=== PATIENT | male | born 1975 | race Caucasian/White ===

== ENCOUNTER 2018-06-19 16:03 | Observation (INO) ==
--- NOTE | 2018-06-19 16:36 | Emergency Department Note ---
Disposition Clinical Impression: ST segment changes on electrocardiogram, Elevated blood pressure reading Proteinuria Qualifiers: Proteinuria type: unspecified Qualified Code(s): R80.9 - Proteinuria, unspecified Disposition: Admitted As Inpatient Condition: Good Time of Disposition: 18:08 General Adult HPI - General Chief complaint: ED Abdominal Pain Stated complaint: flank/back pain Time Seen by Provider: 06/19/18 16:13 Source: patient Mode of arrival: ambulatory Limitations: no limitations Nursing Notes Reviewed: Yes Vital Signs Reviewed: Yes - History of Present Illness HPI Narrative: Patient is a 42-year-old male that presents emergency Department with reports of low back pain and being told that 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 Patient states that the back pain began approximately 2 months ago. Patient states that there is no injury or trauma at that time. P atient states that he just woke up one morning and had bilateral lower back pain. Patient denies any radiation of the pain. Patient states that the pain just feels like a ball and tightness in his lower lumbar region. Patient states that he was told that he should follow up this primary care provider for the protein in his urine however he stated that he has been putting it off and did not want to follow up this primary care provider because he felt that he would get referred to somebody else they felt that he would come to the emergency department to get everything taken care of at once. Patient denies any numbness, weakness or tingling. Patient states that he does not normally have a history of hypertension but his blood pressure was high in triage today and he was surprised by this. Pain Scale: 3 - Related Data Previous Rx's Medication Instructions Recorded Benzonatate [Tessalon] 200 mg PO TID PRN #30 capsule 06/12/18 RX: Amoxicillin 875 mg PO BID #20 tablet 06/12/18 Allergies Allergy/AdvReac Type Severity Reaction Status Date / Time No Known Allergies Allergy Verified 06/12/18 09:44 All systems ED: reviewed and negative except as stated. Constitutional: Denies: fever Cardiovascular: Denies: chest pain Respiratory: Denies: dyspnea Gastrointestinal: Denies: abdominal pain, nausea, vomiting Genitourinary: Denies: urgency, dysuria, frequency, hematuria Musculoskeletal: Reports: back pain Neurological: Denies: weakness, numbness, paresthesias Past Medical History - Past Medical History Medical history: Reports: no medical history Psychiatric history: Reports: no psych history - Social History Smoking Status: Current every day smoker Smokeless Tobacco Status: No Alcohol use: Reports: occasionally Drug use: Reports: none Physical Exam - General Limitations: no limitations General appearance: alert, in no apparent distress - Head Head exam: atraumatic, normocephalic - Eye Eye exam: Present: normal appearance, EOMI - Neck Neck exam: Present: normal inspection, full ROM, trachea midline - Respiratory Respiratory exam: Present: normal lung sounds bilaterally. Absent: respiratory distress, wheezes - Cardiovascular Cardiovascular exam: Present: regular rate, normal rhythm, normal heart sounds, +S1, +S2 - Abdominal Exam Abdominal exam: Present: soft, Non-Tender, normal bowel sounds - Back Exam Back exam: Present: normal inspection, full ROM, paraspinal tenderness, other (Patient has pain with straight leg raise but does not radiate down his legs) - Neurological Exam Neurological exam: Present: alert, oriented X3 - Psychiatric Psychiatric exam: Present: normal affect, normal mood - Skin Skin exam: Present: warm, dry, intact Course Vital Signs Temperature 97.4 F L 06/19/18 16:06 Pulse Rate 103 06/19/18 16:06 Respiratory Rate 20 06/19/18 16:06 Blood Pressure 197/121 06/19/18 16:06 O2 Sat by Pulse Oximetry 96 06/19/18 16:06 Temperature 97.8 F 06/19/18 22:43 Pulse Rate 79 06/19/18 22:43 Respiratory Rate 16 06/19/18 22:43 Blood Pressure 147/88 06/19/18 22:43 O2 Sat by Pulse Oximetry 92 06/19/18 22:43 Oxygen Delivery Oxygen Delivery Room Air Medical Decision Making - [facility] Narrative Medical decision making narrative: Due the patient is not emergency Department with reports of back pain as well as being told that he had a lot of protein in his urine obtain basic laboratory testing urinalysis and an EKG. Upon reevaluation of the patient and further questioning he does admit that he occasionally will have intermittent chest pain. Patient states that he is not having any active chest pain at this time. Patient's urinalysis is show elevated protein of 100 and his urine. Rate of h is laboratory testing is relatively unremarkable with a negative troponin. His EKG does show EKG changes with ST depression and T-wave inversions in 3, aVF, V5 and V6. This is new since his previous EKG on 03/10/2009. Patient does state that he will occasionally have intermittent chest pain. No active chest pain on the time of exam. However the patient does have a heart score of 4 and I feel that he would be better served being admitted to the hospital. Patient has had poor follow-up in the past with his primary care provider in regards to his proteinuria and I have concerns that he will successfully follow-up for outpatient evaluation of his EKG changes. Spoke with the admitting hospitalist and he is except the patient their service. Patient be admitted to the hospital this time for further evaluation and management. - Medical Records Medical records reviewed: Yes I reviewed the patient's medical records. - Lab Data Lab results reviewed: Yes I reviewed the patient's lab results. Result diagrams: 06/19/18 16:56 06/19/18 16:56 Lab Results 06/19/18 06/19/18 06/19/18 Range/Units 16:56 16:56 17:41 WBC 8.5 (4.3-11.1) K/mcL RBC 5.39 (4.19-5.50) M/mcL Hgb 15.4 (12.9-16.9) g/dL Hct 47.5 (37.5-50.1) % MCV 88.1 (83.0-100.0) fL MCH 28.6 (28.0-33.3) pg MCHC 32.4 (31.6-35.5) g/dL RDW 13.6 (11.5-14.5) % Plt Count 328 (140-400) K/mcL MPV 9.3 L (9.4-12.4) fL Immature Gran % 0.4 (0-4) % Seg Neutrophils % 56.9 % Lymphocytes % 29.2 % Monocytes % 9.2 % Eosinophils % 3.4 % Basophils % 0.9 % Neutrophils # 4.8 (1.6-8.9) K/mcL Lymphocytes # 2.5 (0.6-4.6) K/mcL Monocytes # 0.8 (0.0-1.3) K/mcL Eosinophils # 0.3 (0.0-0.6) K/mcL Basophils # 0.1 (0.0-0.2) K/mcL Sodium 137 (136-145) mEq/L Potassium 4.4 (3.5-5.1) mEq/L Chloride 103 (98-107) mEq/L Carbon Dioxide 28 (23-29) mEq/L BUN 12 (6-20) mg/dL Creatinine 0.76 (0.70-1.30) mg/dL Est GFR ( Amer) > 60 (> 60) Est GFR (Non-Af Amer) > 60 (> 60) BUN/Creatinine Ratio 16 (6-26) Glucose 115 H (70-105) mg/dL Calculated Osmolality 285 (280-300) Calcium 9.3 (8.6-10.3) mg/dL Total Bilirubin 0.2 L (0.3-1.0) mg/dL Direct Bilirubin 0.1 (0.0-0.2) mg/dL Indirect Bilirubin 0.1 (0.0-1.2) mg/dL AST 28 (13-39) Units/L ALT 33 (7-52) Units/L Alkaline Phosphatase 24 L (34-104) Units/L Troponin I 0.03 (< 0.04) ng/mL Serum Total Protein 6.8 (6.4-8.9) g/dL Albumin 3.9 (3.5-5.7) g/dL Globulin 2.9 (2.4-3.5) g/dL Albumin/Globulin Ratio 1.3 (1.1-2.2) Urine Color Yellow (Yellow) Urine Clarity Cloudy A (Clear) Urine pH 6.5 (5.0-8.0) pH Units Ur Specific [place] 1.020 (1.010-1.025) Urine Protein 100 H (Neg-Trace) mg/dL Urine Glucose (UA) Normal (Normal) mg/dL Urine Ketones Negative (Negative) mg/dL Urine Blood Moderate H (Negative) Urine Nitrite Negative (Negative) Urine Bilirubin Negative (Negative) Urine Urobilinogen Normal (Normal) mg/dL Ur Leukocyte Esterase Negative (Negative) Urine Microscopic RBC 3-5 H (0-3) per hpf Urine Microscopic WBC 0-3 (0-3) per hpf Ur Squamous Epith Cells Moderate H (None-Few) per lpf Amorphous Sediment Moderate H (Few) Urine Bacteria None Seen (None-Few) per hpf Hyaline Casts None Seen (None-Few) per lpf Urine Yeast Many H (None Seen) per hpf Ur Culture Indicated? NO (NO) - Radiology Data Radiology results reviewed: Yes I reviewed the patient's radiology results. Chest X-Ray 06/19/18 17:21 IMPRESSION: Cardiomegaly. No radiographic evidence of acute pulmonary disease. D/ / Saroj Jones / Saroj Jones Interpreting Provider: Saroj Jones - EKG Data EKG #1 EKG attestation: Yes I reviewed and interpreted this EKG. EKG results narrative: EKG shows a sinus rhythm at rate 84 bpm, RI interval of 207, QRS duration of 99, QTC of 439. There is no evidence of STEMI on EKG. There are ST depressions and T-wave inversions in 3 and aVF as well as V5 and V6. This was compared to previous EKG on 03/10/2009. These depressions and inversions were not there at that time. Attestation Statement - Attestation Attestation: Resident Attestation: I examined this patient and my medical decision making was reviewed with the Resident Physician. I agree with the documented findings, disposition and treatment plan as described except to the extent set forth below. We independently had [id number] contact with the patient. Patient initially presented to the emergency department secondary to elevated protein in his urine. Patient states urgent care told him follow-up with primary care as his kidneys could be "shutting down". Patient arrives to the emergency department with complaints of back pain as well as elevated blood pressure systolically 190/20. The patient denies previous hypertension. Overall patient states that he has not had protein in his urine previously. At this time we did initiate a workup to evaluate for end organ damage. Overall creatinine was normal however the patient does have a significantly abnormal EKG. On asking the patient about chest pain he does state that he gets intermittent chest pain. Unfortunately he is unable to specify exactly when or how often he gets it. He states that he does get significantly short of breath but given his body habitus it is unknown whether it is related to a cardiac equivalent versus deconditioning. I did discuss with him the need for further workup. Patient does not have a primary care physician. The patient had his labs evaluated from previously and was found to have proteinuria in November. Patient was asked about this as he previously denied and states that he did not feel like following up. Given the patient's significantly abnormal EKG as well as associated chest pain and exertional dyspnea patient will be admitted for further cardiac evaluation as I do not believe that he will be able to have this performed in a reasonable amount of time as an outpatient. Overall back pain likely related to musculoskeletal nature as it is related over the SI joints as well as the paraspinal muscles and worse with movements without any specific midline spine tenderness or tenderness to the pelvis. General: Well appearing, nontoxic, no acute distress Head: Normocephalic Atraumatic Eyes: PERRL, EOMI ENT: Airway patent, no stridor Neck: supple, no meningismus Chest: Lungs clear to auscultation bilateral Cardiac: Regular rate and rhythm, no murmurs, rubs or gallops Abdomen: soft, nontender, nondistended; no guarding, rebound, or tenderness to percussion Musculoskeletal: Calves symmetric, nontender. Pain to palpation of the SI joints as well as paraspinal muscles bilaterally Skin: No rash, normal skin tone. Neuro: Alert and Oriented to person, place, and time; No obvious focal deficit.
[2018-06-19 17:08] LABS: Basophils # 0.1 K/mcL (0.0-0.2); Basophils % 0.9 %; Eosinophils # 0.3 K/mcL (0.0-0.6); Eosinophils % 3.4 %; Hematocrit 47.5 % (37.5-50.1); Hemoglobin 15.4 g/dL (12.9-16.9); Immature Granulocytes % 0.4 % (0-4); Lymphocytes # 2.5 K/mcL (0.6-4.6); Lymphocytes % 29.2 %; Mean Corpuscular HGB Conc 32.4 g/dL (31.6-35.5); Mean Corpuscular Hemoglobin 28.6 pg (28.0-33.3); Mean Corpuscular Volume 88.1 fL (83.0-100.0); Mean Platelet Volume 9.3 fL (9.4-12.4); Monocytes # 0.8 K/mcL (0.0-1.3); Monocytes % 9.2 %; Neutrophils # 4.8 K/mcL (1.6-8.9); Platelet Count 328 K/mcL (140-400); Red Blood Count 5.39 M/mcL (4.19-5.50); Red Cell Distribution Width 13.6 % (11.5-14.5); Segmented Neutrophils % 56.9 %
[2018-06-19 17:29] LABS: Alanine Aminotransferase 33 Units/L (7-52); Albumin 3.9 g/dL (3.5-5.7); Albumin/Globulin Ratio 1.3 (1.1-2.2); Alkaline Phosphatase 24 Units/L (34-104); Aspartate Amino Transferase 28 Units/L (13-39); BUN/Creatinine Ratio 16 (6-26); Bilirubin,Direct 0.1 mg/dL (0.0-0.2); Bilirubin,Indirect 0.1 mg/dL (0.0-1.2); Bilirubin,Total 0.2 mg/dL (0.3-1.0); Blood Urea Nitrogen 12 mg/dL (6-20); Calcium 9.3 mg/dL (8.6-10.3); Carbon Dioxide 28 mEq/L (23-29); Chloride 103 mEq/L (98-107); Globulin 2.9 g/dL (2.4-3.5); Glucose 115 mg/dL (70-105); Osmolality,Calculated 285 (280-300); Potassium 4.4 mEq/L (3.5-5.1); Sodium 137 mEq/L (136-145); Total Protein 6.8 g/dL (6.4-8.9); Troponin I 0.03 ng/mL (< 0.04); eGFR For Non-African Americans > 60 (> 60)
[2018-06-19 17:50] LABS: Bilirubin,Urine Negative (Negative); Blood,Urine Moderate (Negative); Clarity,Urine Cloudy (Clear); Color,Urine Yellow (Yellow); Glucose,Urine (UA) Normal (Normal); Ketones,Urine Negative (Negative); Leukocyte Esterase,Urine Negative (Negative); Nitrite,Urine Negative (Negative); PH,Urine 6.5 pH Units (5.0-8.0); Protein,Urine 100 mg/dL (Neg-Trace); Urobilinogen,Urine Normal (Normal)
[2018-06-19 17:53] LABS: Bacteria,Urine None Seen per hpf (None-Few); Hyaline Casts,Urine None Seen per lpf (None-Few); Squamous Epithelial Cell,Urine Moderate per lpf (None-Few); WBC,Urine 0-3 per hpf (0-3)
[2018-06-19 18:04] LABS: Amorphous Sediment,Urine Moderate (Few); Yeast,Urine Many per hpf (None Seen)
[2018-06-19] MEDS: *HR* Labetalol 20 MG/4 ML SYRINGE IVP PRN (18:46)
[2018-06-19] MEDS ORDERED: Acetaminophen 325 MG TABLET PO ONE (18:56)
--- NOTE | 2018-06-19 19:21 | Internal Med History&Physical ---
Date of Encounter: 06/19/18 Time of Encounter: 19:17 Internal Medicine - H&P: HPI Chief complaint: Back Pain/ Protienuria/Chest Pain History of present illness: Mr. Quevedo is a 42 year old morbidly obese male with no significant prior past medical history who was admitted to the ED today due to complaints of low back pain and findings of proteinuria on outpatient laboratory workup during a physical exam. Patient states he has been having back pain for some time that s cheduled progressively worse over the past 2 weeks. Pain is located across the lower lumbar region. Described as a dull tightness/ache. Pain is aggravated with ambulation and prolonged standing. Patient states she has been on his feet at work which is been more strenuous over the past 2 weeks. Patient states now he cannot stand for more than a few minutes without having pain in his back. No reports of radiation down the legs. Denies any numbness tingling or weakness in the lower extremities. Patient was also informed that his urine was notable for proteinuria. Patient has been informed that he has elevation of protein in his urine by his PCP and would require follow-up, however, patient apparently has been putting this off and as opposed to getting referred to someone else, decide d to come to the ED to get all his issues evaluated at one time. Workup in the ED was initially notable for hypertension with a blood pressure of 191/121. EKG was obtained which showed subtle changes when compared to previous EKG in February, specifically subtle T-wave changes in leads 3 and aVF and lateral leads. Upon further questioning patient does endorse intermittent chest pain which he describes as tightness, typically occurring with exertion with no other associated symptoms. Patient is not recall if he has ever had a stress test. Patient does smoke half a pack a day and has been doing so for approximately 20 years. Denies any significant family history of heart disease. Laboratory workup was otherwise unremarkable aside from UA studies positive for proteinuria and moderate RBCs. Patient received labetalol in the ED with improvement in blood pressure. Past Med Surg Social Fam HX - Past Medical History Medical history: no medical history Psychiatric history: no psych history - Social History Smoking Status: Current every day smoker Smokeless Tobacco Status: No Alcohol use: occasionally Drug use: none Internal Medicine - H&P: Meds Amoxicillin 875 mg PO BID #20 tablet 06/12/18 [Rx] Benzonatate [Tessalon] 200 mg PO TID PRN #30 capsule 06/12/18 [Rx] Allergy/AdvReac Type Severity Reaction Status Date / Time No Known Allergies Allergy Verified 06/12/18 09:44 All Systems PM: A 10-system review of systems was performed and is negative for pertinent findings except as documented above in the HPI. - Constitutional Constitutional: no chills, no fever(s), no night sweats - EENT Eyes: no change in vision, no discharge, no pain, no photophobia Ears: no ear discharge, no ear pain, no tinnitus Nose, mouth and throat: no dysphagia, no nasal discharge, no neck pain, no sore throat - Cardiovascular Cardiovascular ROS IM: no chest pain, no diaphoresis, no dyspnea, no lightheadedness, no palpitations, no syncope - Respiratory Respiratory: no cough, no dyspnea, no wheezing, no excessive phlegm production - Gastrointestinal Gastrointestinal: no abdominal pain, no diarrhea, no hematemesis, no hematochezia, no melena, no nausea, no vomiting - Musculoskeletal Musculoskeletal ROS IM: no numbness, no tingling - Integumentary Integumentary IM: no rash, no unusual bruising - Neurological Neurological ROS: no confusion, no convulsions, no focal weakness, no numbness, no tingling, no tremor(s) - Hematologic/Lymphatic Hematologic/Lymphatic: no easy bruising - Constitutional Vitals: Temp Pulse Resp BP Pulse Ox 97.4 F L 87 14 147/98 96 06/19/18 16:06 06/19/18 18:44 06/19/18 18:44 06/19/18 18:44 06/19/18 18:44 Exam: General: Alert and oriented 3 sitting in chair. Skin:Normal color, no rash, no lesions. HEENT:EOM, pupils equal, round and reactive. Cardiovascular:Normal S1 & S2, no rubs, murmurs or gallops. No JVD. Pulse regular. Lungs:Normal breath sounds, no wheezes or crackles. Abdomen:Soft, non-tender, no rigidity. Musculoskeletal/Extremities: Tenderness to palpation across the lower back at the level of L4-L5. Neurological:Normal cognition and motor skills. Incision intact. Muscle strength in the lower extremities 5 out of 5 bilaterally. Pulses:Carotid and radial pulses normal +2. Rest of the physical exam is non contributory Internal Med - H&P Results - Labs CBC & Chem 7: 06/20/18 03:14 06/20/18 03:14 Labs: Short CBC 06/19/18 Range/Units 16:56 WBC 8.5 (4.3-11.1) K/mcL Hgb 15.4 (12.9-16.9) g/dL Hct 47.5 (37.5-50.1) % Plt Count 328 (140-400) K/mcL Neutrophils # 4.8 (1.6-8.9) K/mcL BMP 06/19/18 16:56 Sodium 137 Potassium 4.4 Chloride 103 Carbon Dioxide 28 BUN 12 Creatinine 0.76 Glucose 115 H Calcium 9.3 Cardiac Enzymes 06/19/18 Range/Units 16:56 Troponin I 0.03 (< 0.04) ng/mL Liver Function 06/19/18 Range/Units 16:56 Total Bilirubin 0.2 L (0.3-1.0) mg/dL Direct Bilirubin 0.1 (0.0-0.2) mg/dL AST 28 (13-39) Units/L ALT 33 (7-52) Units/L Alkaline Phosphatase 24 L (34-104) Units/L Albumin 3.9 (3.5-5.7) g/dL Urine 06/19/18 Range/Units 17:41 Urine Color Yellow (Yellow) Urine Clarity Cloudy A (Clear) Urine pH 6.5 (5.0-8.0) pH Units Ur Specific [place] 1.020 (1.010-1.025) Urine Protein 100 H (Neg-Trace) mg/dL Urine Glucose (UA) Normal (Normal) mg/dL - Impressions ITS Impressions Chest X-Ray 06/19/18 17:21 IMPRESSION: Cardiomegaly. No radiographic evidence of acute pulmonary disease. D/ / Saroj Jones / Saroj Jones Interpreting Provider: Saroj Jones - Assessment and Plan (1) Chest pain Current Visit: Yes Status: Acute Assessment and plan: Patient reports intermittent chest pain with exertion relieved with rest. Upon arrival EKG showed subtle T-wave inversions/changes when compared to previous EKG in February. She currently chest pain-free. Troponins negative. Patient has significant risk factors including morbid obesity, hypertension, and smoking history. -We will obtain nuclear stress test due to patient's body habitus and back pain -Obtain echocardiogram -Patient consult on smoking cessation and weight loss Qualifiers: Chest pain type: unspecified Qualified Code(s): R07.9 - Chest pain, unspecified (2) EKG abnormalities Current Visit: Yes Status: Acute Assessment and plan: See above (3) Elevated blood pressure reading Current Visit: Yes Status: Acute Assessment and plan: Patient presented with a blood pressure of 191/121. Patient received labetalol with good response. Blood pressurestable. Unclear if blood pressure has been ongoing or related to pain versus NSAID use. Patient not currently on any antih ypertensives. -We will monitor BP -Continue with antihypertensives as needed (4) Proteinuria Current Visit: Yes Status: Acute Assessment and plan: UA shows proteinuria of 100 mg/dL. Patient reports she has been told he has had proteinuria before but has not followed up workup. Kidney function is other gamez within normal limits. Patient does report taking 200 mg of ibuprofen twice a day for the past month for his back pain. No history of diabetes. Patient was found to be hypertensive. Unclear how long his hypertension has been ongoing for versus secondary to NSAID use. Discussed with patient need to discontinue NSAIDs. Patient's morbid obesity may also be continuing to a type of obesity hyperfiltration injury. -We will obtain random protein/creatinine ratio -Check hemoglobin A1c -We will obtain renal ultrasound -Discontinue NSAID's for pain control -Nephrology consult Qualifiers: Proteinuria type: unspecified Qualified Code(s): R80.9 - Proteinuria, unspecified (5) Back pain Current Visit: Yes Status: Acute Assessment and plan: Patient presents with what appears to be chronic back pain that has gotten progressively worse over the past 2 weeks. No reports of trauma. Suspect musculoskeletal in origin given patient's body habitus, history, and physical examination.. No evidence of any radiculopathy, weakness, numbness or tingling. -We will give patient tramadol for pain control -MRI of the lumbar spine in the morning Qualifiers: Back pain location: back pain in unspecified location Qualified Code(s): M54.9 - Dorsalgia, unspecified (6) DVT prophylaxis Current Visit: Yes Status: Acute Assessment and plan: Subcutaneous heparin - Time Spent With Patient Total time spent is greater than 50% in coordination of care (as documented) at patient's floor/unit and/or counseling patient:
[2018-06-19] MEDS ORDERED: Naloxone 0.4 MG/ML INJ IVP PRN (19:24)
[2018-06-19] MEDS ORDERED: Gadolinium Contrast Agent (WT Based) IV PRN (20:47)
[2018-06-19] MEDS: *HR* Heparin 5,000 UNIT/ML VIAL SQ SCH (23:56)
[2018-06-20 04:08] LABS: Hematocrit 45.3 % (37.5-50.1); Hemoglobin 14.6 g/dL (12.9-16.9); Mean Corpuscular HGB Conc 32.2 g/dL (31.6-35.5); Mean Corpuscular Hemoglobin 28.7 pg (28.0-33.3); Mean Platelet Volume 9.5 fL (9.4-12.4); Platelet Count 322 K/mcL (140-400); Red Blood Count 5.09 M/mcL (4.19-5.50); Red Cell Distribution Width 13.7 % (11.5-14.5)
[2018-06-20 04:22] LABS: Alanine Aminotransferase 31 Units/L (7-52); Albumin 3.6 g/dL (3.5-5.7); Albumin/Globulin Ratio 1.3 (1.1-2.2); Alkaline Phosphatase 22 Units/L (34-104); Aspartate Amino Transferase 26 Units/L (13-39); BUN/Creatinine Ratio 12 (6-26); Bilirubin,Total 0.2 mg/dL (0.3-1.0); Blood Urea Nitrogen 12 mg/dL (6-20); Calcium 9.2 mg/dL (8.6-10.3); Carbon Dioxide 32 mEq/L (23-29); Chloride 101 mEq/L (98-107); Chol/HDL Ratio 14.1 (0-4.9); Cholesterol 183 mg/dL (< 200); Globulin 2.7 g/dL (2.4-3.5); Glucose 104 mg/dL (70-105); HDL Cholesterol 13 mg/dL (40-59); LDL Cholesterol,Calculated 139 mg/dL (0-99); Magnesium 2.1 mg/dL (1.6-2.6); Osmolality,Calculated 286 (280-300); Potassium 3.9 mEq/L (3.5-5.1); Sodium 138 mEq/L (136-145); Total Protein 6.3 g/dL (6.4-8.9); Triglycerides 154 mg/dL (< 150); eGFR For Non-African Americans > 60 (> 60)
[2018-06-20] MEDS: *HR* Heparin 5,000 UNIT/ML VIAL SQ SCH ×3 (05:37→20:20)
[2018-06-20] MEDS: traMADol 50 MG TABLET PO PRN ×3 (05:41→20:20)
[2018-06-20 06:37] LABS: Protein/Creatinine Ratio,Urine 0.26 mg/mg (0.00-0.20)
[2018-06-20] MEDS ORDERED: Regadenoson 0.4 MG/5 ML SYRINGE IVP ONE (07:24)
[2018-06-20 08:20] LABS: Estimated Average Glucose 126 mg/dl
--- NOTE | 2018-06-20 08:27 | Nephrology Consult Note ---
Date of Encounter: 06/20/18 Time of Encounter: 08:27 Past Med Surg Social Fam HX - Past Medical History Medical history: no medical history Psychiatric history: no psych history - Past Surgical History Surgical History: herniorrhaphy, tonsilectomy - Social History Smoking Status: Current every day smoker Smokeless Tobacco Status: No Alcohol use: occasionally Drug use: none - Family History Father Hx Family Cardiac Disorders: Yes (svt htn) Hx Family Respiratory Disorders: Yes (copd) Mother Hx Family Respiratory Disorders: Yes (pulmonary HTN) Medications and Allergies Amoxicillin 875 mg PO BID #20 tablet 06/12/18 [Rx] Benzonatate [Tessalon] 200 mg PO TID PRN #30 capsule 06/12/18 [Rx] Allergy/AdvReac Type Severity Reaction Status Date / Time No Known Allergies Allergy Verified 06/12/18 09:44 Exam - Vital Signs Vital signs: Initial Vital Signs Temp Pulse Resp BP Pulse Ox 97.4 F L 103 20 197/121 96 06/19/18 16:06 06/19/18 16:06 06/19/18 16:06 06/19/18 16:06 06/19/18 16:06 Vital Signs - Last 8 Hours Temp Pulse Resp BP Pulse Ox 06/20/18 07:15 97.3 F L 81 16 138/90 95 06/20/18 03:02 97.9 F 85 16 157/88 93 Intake and Output 06/19/18 06/20/18 06/20/18 23:59 07:59 15:59 Other: Stool Characteristics Normal for Patient Weight 214.6 kg 214.6 kg Patient Weight 06/20/18 23:59 Weight 214.6 kg Results - Lab Results 06/20/18 03:14 06/20/18 03:14 Most recent lab results Calcium 9.2 mg/dL (8.6-10.3) 06/20/18 03:14 Magnesium 2.1 mg/dL (1.6-2.6) 06/20/18 03:14 Urine Creatinine 238 mg/dL 06/20/18 06:00 Urine Total Protein 62 mg/dL (1-14) H 06/20/18 06:00 Consult Discharge Plan - Plan Referrals: Susy Thomas [facility] [Primary Care Provider] -
--- NOTE | 2018-06-20 08:33 | Event Note ---
Date of Encounter: 06/20/18 Time of Encounter: 08:30 I've been by the patient's room twice and he has been away for a procedure. Will repeat UA with urine p/c ratio. UA looks as if there could be a fungal UTI. Will check urine culture. Creatinine normal. Full consult to follow.
[2018-06-20] MEDS ORDERED: Perflutren Lipid Microsphere 1.3 ML in 0.9 % Sodium Chloride 8.7 ML IVP ONE (08:57)
[2018-06-20] MEDS: *HR* Labetalol 20 MG/4 ML SYRINGE IVP PRN (11:54)
--- NOTE | 2018-06-20 14:24 | Internal Med Progress Note ---
Hospitalist Progress Note - Encounter Date of Encounter: 06/20/18 Time of Encounter: 14:24 - Subjective Interval History: Patient was seen and examined at bedside I did discuss the treatment plan with the patient we reviewed results of lab work as well as echo. I answered patient's questions he denies any pain or discomfort at this time - Exam Vitals: Temp Pulse Resp BP Pulse Ox 97.9 F 79 16 170/65 95 06/20/18 13:52 06/20/18 13:52 06/20/18 13:52 06/20/18 13:52 06/20/18 13:52 Exam: General: Alert and oriented 3 sitting in chair. Morbidly obese Skin:Normal color, no rash, no lesions. HEENT:EOM, pupils equal, round and reactive. Cardiovascular:Normal S1 & S2, no rubs, murmurs or gallops. No JVD. Pulse regular. Lungs:Normal breath sounds, no wheezes or crackles. Abdomen:Soft, non-tender, no rigidity. Musculoskeletal/Extremities: Tenderness to palpation across the lower back at the level of L4-L5. Neurological:Normal cognition and motor skills. Muscle strength in the lower extremities 5 out of 5 bilaterally. Pulses:Carotid and radial pulses normal +2. Rest of the physical exam is non contributory - Assessment and Plan (1) Proteinuria Current Visit: Yes Status: Acute Assessment and Plan: UA shows proteinuria of 100 mg/dL. Patient reports she has been told he has had proteinuria before but has not followed up workup. Kidney function is otherwise within normal limits. Patient does report taking 200 mg of ibuprofen twice a day for the past month for his back pain. No history of diabetes. Patient was found to be hypertensive. Unclear how long his hypertension has been ongoing for versus secondary to NSAID use. Discussed with patient need to discontinue NSAIDs. Patient's morbid obesity may also be continuing to a type of obesity hyperfiltration injury. -We will obtain random protein/creatinine ratio -Check hemoglobin A1c-6.0 -We will obtain renal ultrasound- pending -Discontinue NSAID's for pain control -Nephrology consult (2) Elevated blood pressure reading Current Visit: Yes Status: Acute Assessment and Plan: Patient presented with a blood pressure of 191/121. Patient received labetalol with good response. Blood pressurestable. Unclear if blood pressure has been ongoing or related to pain versus NSAID use. Patient not currently on any antihypertensives. -We will monitor BP-has been elevated at times will continue to monitor -Continue with antihypertensives as needed (3) Chest pain Current Visit: Yes Status: Acute Assessment and Plan: Patient reports intermittent chest pain with exertion relieved with rest. Upon arrival EKG showed subtle T-wave inversions/changes when compared to previous EKG in February. She currently chest pain-free. Troponins negative. Patient has significant risk factors including morbid obesity, hypertension, and smoking history. -We will obtain nuclear stress test due to patient's body habitus and back pain- he is finished first day of today - echocardiogram Impressions: Technically sub-optimal due to body habitus. LVEF 50%. Normal left ventricular diastolic function. The right ventricle was not well visualized Unable to estimate RVSP due to lack of TR jet. No obvious significant valvular dysfunction. -Patient consult on smoking cessation and weight loss (4) EKG abnormalities Current Visit: Yes Status: Acute Assessment and Plan: See above (5) Back pain Current Visit: Yes Status: Acute Assessment and Plan: Patient presents with what appears to be chronic back pain that has gotten progressively worse over the past 2 weeks. No reports of trauma. Suspect musculoskeletal in origin given patient's body habitus, history, and physical examination.. No evidence of any radiculopathy, weakness, numbness or tingling. -We will give patient tramadol for pain control -MRI of the lumbar spine in the morning (6) DVT prophylaxis Current Visit: Yes Status: Acute Assessment and Plan: Subcutaneous heparin - Time Spent with Patient Total time spent is greater than 50% in coordination of care (as documented) at patient's floor/unit and/or counseling patient: Internal Medicine: Result - Labs CBC & Chem 7: 06/20/18 03:14 06/20/18 03:14 Labs: Short CBC 06/19/18 06/20/18 Range/Units 16:56 03:14 WBC 8.5 8.8 (4.3-11.1) K/mcL Hgb 15.4 14.6 (12.9-16.9) g/dL Hct 47.5 45.3 (37.5-50.1) % Plt Count 328 322 (140-400) K/mcL Neutrophils # 4.8 (1.6-8.9) K/mcL BMP 06/19/18 06/20/18 16:56 03:14 Sodium 137 138 Potassium 4.4 3.9 Chloride 103 101 Carbon Dioxide 28 32 H BUN 12 12 Creatinine 0.76 0.99 Glucose 115 H 104 Calcium 9.3 9.2 Cardiac Enzymes 06/19/18 06/19/18 Range/Units 16:56 22:51 Troponin I 0.03 0.03 (< 0.04) ng/mL Liver Function 06/19/18 06/20/18 Range/Units 16:56 03:14 Total Bilirubin 0.2 L 0.2 L (0.3-1.0) mg/dL Direct Bilirubin 0.1 (0.0-0.2) mg/dL AST 28 26 (13-39) Units/L ALT 33 31 (7-52) Units/L Alkaline Phosphatase 24 L 22 L (34-104) Units/L Albumin 3.9 3.6 (3.5-5.7) g/dL Urine 06/19/18 Range/Units 17:41 Urine Color Yellow (Yellow) Urine Clarity Cloudy A (Clear) Urine pH 6.5 (5.0-8.0) pH Units Ur Specific [place] 1.020 (1.010-1.025) Urine Protein 100 H (Neg-Trace) mg/dL Urine Glucose (UA) Normal (Normal) mg/dL - Impressions Impressions Chest X-Ray 06/19/18 17:21 IMPRESSION: Cardiomegaly. No radiographic evidence of acute pulmonary disease. D/ / Saroj Jones / Saroj Jones Interpreting Provider: Saroj Jones Echocardiogram 06/20/18 19:33 Impressions: Technically sub-optimal due to body habitus. LVEF 50%. Normal left ventricular diastolic function. The right ventricle was not well visualized Unable to estimate RVSP due to lack of TR jet. No obvious significant valvular dysfunction. Left Ventricular Wall Motion: Rest Echo Findings All wall segments showed normal motion. Findings: Study Quality * Technically sub-optimal due to body habitus. ECG Findings * Normal sinus rhythm. Left Ventricle * LVEF 50%. * Definity echo contrast was used. * Normal left ventricular diastolic function. IVC * Normal IVC dimensions and inspiratory collapse. Tricuspid Valve * Unable to estimate RVSP due to lack of TR jet. * Tricuspid valve not well visualized. * Trace tricuspid regurgitation. * No tricuspid stenosis. Mitral Valve * Mitral valve not well visualized. * No mitral regurgitation. * No mitral stenosis. Aortic Valve * Aortic valve not well visualized. * No aortic regurgitation. * No aortic stenosis. Interatrial Septum * Interatrial septum not well evaluated. Right Atrium * Normal right atrial size. Left Atrium * Normal left atrial size. Right Ventricle * The right ventricle was not well visualized Aorta * Normally sized aortic root. Pulmonic Valve * Pulmonic valve not well visualized. Pulmonary Artery * Pulmonary artery not well visualized. Consult Discharge Plan - Plan Referrals: Susy Thomas, CHALK EXTRUDING MACHINE OPERATOR [Primary Care Provider] - (1) Proteinuria Qualifiers: Proteinuria type: unspecified Qualified Code(s): R80.9 - Proteinuria, unspecified
[2018-06-21] MEDS: traMADol 50 MG TABLET PO PRN ×3 (04:34→18:26)
[2018-06-21] MEDS: *HR* Heparin 5,000 UNIT/ML VIAL SQ SCH ×2 (04:35→15:06)
[2018-06-21 05:08] LABS: Basophils # 0.1 K/mcL (0.0-0.2); Basophils % 0.8 %; Eosinophils # 0.3 K/mcL (0.0-0.6); Eosinophils % 3.6 %; Hematocrit 48.1 % (37.5-50.1); Hemoglobin 15.3 g/dL (12.9-16.9); Immature Granulocytes % 0.3 % (0-4); Lymphocytes # 3.1 K/mcL (0.6-4.6); Lymphocytes % 34.5 %; Mean Corpuscular HGB Conc 31.8 g/dL (31.6-35.5); Mean Corpuscular Hemoglobin 28.4 pg (28.0-33.3); Mean Corpuscular Volume 89.4 fL (83.0-100.0); Mean Platelet Volume 9.6 fL (9.4-12.4); Monocytes # 0.7 K/mcL (0.0-1.3); Monocytes % 7.8 %; Neutrophils # 4.7 K/mcL (1.6-8.9); Platelet Count 303 K/mcL (140-400); Red Blood Count 5.38 M/mcL (4.19-5.50); Red Cell Distribution Width 13.8 % (11.5-14.5)
[2018-06-21 05:26] LABS: BUN/Creatinine Ratio 11 (6-26); Blood Urea Nitrogen 10 mg/dL (6-20); Calcium 9.2 mg/dL (8.6-10.3); Carbon Dioxide 32 mEq/L (23-29); Chloride 100 mEq/L (98-107); Glucose 96 mg/dL (70-105); Osmolality,Calculated 279 (280-300); Potassium 4.2 mEq/L (3.5-5.1); Sodium 135 mEq/L (136-145); eGFR For Non-African Americans > 60 (> 60)
--- NOTE | 2018-06-21 10:30 | Nephrology Consult Note ---
Date of Encounter: 06/21/18 Time of Encounter: 10:30 Past Med Surg Social Fam HX - Past Medical History Medical history: no medical history Psychiatric history: no psych history - Past Surgical History Surgical History: herniorrhaphy, tonsilectomy - Social History Smoking Status: Current every day smoker Smokeless Tobacco Status: No Alcohol use: occasionally Drug use: none - Family History Father Hx Family Cardiac Disorders: Yes (svt htn) Hx Family Respiratory Disorders: Yes (copd) Mother Hx Family Respiratory Disorders: Yes (pulmonary HTN) Medications and Allergies Amoxicillin 875 mg PO BID #20 tablet 06/12/18 [Rx] Benzonatate [Tessalon] 200 mg PO TID PRN #30 capsule 06/12/18 [Rx] Allergy/AdvReac Type Severity Reaction Status Date / Time No Known Allergies Allergy Verified 06/12/18 09:44 Exam - Vital Signs Vital signs: Initial Vital Signs Temp Pulse Resp BP Pulse Ox 97.4 F L 103 20 197/121 96 06/19/18 16:06 06/19/18 16:06 06/19/18 16:06 06/19/18 16:06 06/19/18 16:06 Vital Signs - Last 8 Hours Temp Pulse Resp BP Pulse Ox 06/21/18 06:47 97.8 F 75 14 140/94 94 06/21/18 05:07 97.5 F L 76 14 128/85 96 Intake and Output 06/20/18 06/21/18 06/21/18 23:59 07:59 15:59 Other: Meal Dinner Percent of Meal Consumed 100% # Voids 1 Weight 217 kg Patient Weight 06/21/18 23:59 Weight 217 kg Results - Lab Results 06/21/18 04:04 06/21/18 04:04 Most recent lab results Calcium 9.2 mg/dL (8.6-10.3) 06/21/18 04:04 Magnesium 2.1 mg/dL (1.6-2.6) 06/20/18 03:14 Urine Creatinine 238 mg/dL 06/20/18 06:00 Urine Total Protein 62 mg/dL (1-14) H 06/20/18 06:00 Consult Discharge Plan - Plan Referrals: Susy Thomas CNP [Primary Care Provider] - 06/23/18 1:00 pm
[2018-06-21 15:06] VITALS: BP 142/83
--- NOTE | 2018-06-21 17:34 | Discharge Summary ---
- NOTES TO OUTPATIENT PROVIDER Notes to Outpatient Provider: Presented with back pain unable to perform MRI due to body [id number] of lumbar and thoracic spine shows multilevel degenerative disc disease and mild upper lumbar spondylosis-patient will require consult with dietitian as outpatient concerning diet and weight loss management. Also follow-up with orthopedics-he may require [facility] -unsure if they have an MRI that well accommodate his size-he did have some chest pain and borderline T-wave abnormality underwent stress test which was negative echo shows EF of 50% had proteinuria was seen by nephrology will need to follow-up as outpatient. Started on lisinopril for elevated blood pressure as well as statin and aspirin-blood pressure log Orders not resulted at time of discharge: Pending orders 06/20/18 07:00 NM chris perf SPECT multi [NM] Routine Date of Encounter: 06/21/18 Time of Encounter: 17:34 - Discharge Diagnosis (1) Proteinuria Priority: Secondary Status: Acute Qualifiers: Proteinuria type: unspecified Qualified Code(s): R80.9 - Proteinuria, unspecified (2) Elevated blood pressure reading Priority: Secondary Status: Acute (3) Chest pain Priority: Secondary Status: Acute Qualifiers: Chest pain type: unspecified Qualified Code(s): R07.9 - Chest pain, unspecified (4) EKG abnormalities Priority: Secondary Status: Acute (5) Back pain Priority: Secondary Status: Acute Qualifiers: Back pain location: back pain in unspecified location Qualified Code(s): M54.9 - Dorsalgia, unspecified Hospital course: Mr. Quevedo is a 42 year old male past medical history of morbid obesity current smoker no other significant past medical history presented to [facility] ED with complaints of lower back pain findings of proteinuria on outpatient laboratory work during a physical exam. Patient states she has been having back pain for some time and it has grown progressively worse over the past 2 weeks. Pain is located across lower lumbar region describing it as dull achiness titrate radiating across the back. He denies any numbness or tingling denies any difficulty walking or loss of bowel or bladder. Does not report any radiation of pain down the legs no weakness in the legs Aggravating factors are prolonged standing and the pain is aggravated with ambulation. Patient states that he is is on his feet at work and has been under taking strenuous activity over the past 2 weeks. Now is having difficulty standing for more than a few minutes without having pain. Workup in [facility] department did show hypertension with a blood pressure 191/121 on presentation EKG did show some subtle T-wave changes compared to previous EKG in leads 3 and aVF lateral leads. Patient does not admit to intermittent chest pain which he described as tightness occurring with exertion but no other associated symptoms. He does smoke half pack cigarettes a day rest of lab work was unremarkable urinalysis does show some yeast in urine however suspect this was dirty. He does not complain of any urinary symptoms no leukocytosis or fever. She did undergo a 2 day stress test which was negative for any ischemia or infarct echocardiogram shows EF of 50% normal left ventricular diastolic function of the right ventricle was not well visualized unable to estimate RVSP due to lack of TR jet no obvious significant valvular dysfunction. Lipid profile the show elevation patient was started on statin. Patient did have spikes in blood pressure during admission initiated on lisinopril. Patient was evaluated by nephrology who advised patient to follow- up nephrology in 8 weeks as an outpatient. MRI of spine was attempted however patient was too large for the MRI she. I did obtain a thoracic/lumbar spine which did show degenerative changes Patient was counseled on the importance of weight loss and exercise and how weight loss could improve his pain as well as mobility. Also encouraged lifestyle changes to stop smoking and to control blood pressure and lipids-this will decrease his risk heart attack and stroke. Patient expresses that he wants answers night because he does not want to come back to the ER for the same problems. Again explained that he needs to lose weight which would help with his pain-states that he is heard this before. Patient will be discharged with prescriptions for lisinopril aspirin and statin Ultram. Advised patient to follow-up with orthopedics and primary care provider, nephrology. Advised patient to keep a blood pressure log. Verbalized understanding currently he is hemodynamically stable and ready for discharge - Time Spent with Patient Total time spent providing and/or coordinating discharge services: - Discharge Medications Prescriptions: New Aspirin 81 mg PO DAILY #30 tab.chew Atorvastatin [Lipitor] 40 mg PO HS #30 tablet Lisinopril [Zestril] 5 mg PO DAILY #30 tablet Tramadol HCl [Ultram] 50 mg PO QID PRN 5 Days #20 tab PRN Reason: Moderate Pain Discontinued Amoxicillin 875 mg PO BID #20 tablet No Action Benzonatate [Tessalon] 200 mg PO TID PRN #30 capsule PRN Reason: Cough Home Medications: Benzonatate [Tessalon] 200 mg PO TID PRN #30 capsule 06/12/18 [Rx] Aspirin 81 mg PO DAILY #30 tab.chew 06/21/18 [Rx] Atorvastatin [Lipitor] 40 mg PO HS #30 tablet 06/21/18 [Rx] Lisinopril [Zestril] 5 mg PO DAILY #30 tablet 06/21/18 [Rx] Tramadol HCl [Ultram] 50 mg PO QID PRN 5 Days #20 tab 06/21/18 [Rx] Allergies/Adverse Reactions: Allergy/AdvReac Type Severity Reaction Status Date / Time No Known Allergies Allergy Verified 06/12/18 09:44 Date of admission: 06/19/18 19:50 Primary care physician: Susy Thomas CNP Consults: 06/19/18 20:50 Consult to Nephrology [CONS] Routine Consulting Provider: Kidney Dickey/MANDY/JOSE MIGUEL/GREGORIO Reason for Consult: Proteinuria Call Completed: No Discharging clinician: Daniella Servin Anticipated date of discharge: 06/21/18 - Constitutional Vitals: Temp Pulse Resp BP Pulse Ox 97.8 F 79 17 142/83 94 06/21/18 15:00 06/21/18 15:00 06/21/18 15:00 06/21/18 15:00 06/21/18 15:00 General appearance: Present: A&O X 3, morbidly obese Exam: General: Alert and oriented 3 sitting in chair. Skin:Normal color, no rash, no lesions. HEENT:EOM, pupils equal, round and reactive. Cardiovascular:Normal S1 & S2, no rubs, murmurs or gallops. No JVD. Pulse regular. Lungs:Normal breath sounds, no wheezes or crackles. Abdomen:Soft, non-tender, no rigidity. Musculoskeletal/Extremities: Tenderness to palpation across the lower back at th e level of L4-L5. Neurological:Normal cognition and motor skills. Incision intact. Muscle strength in the lower extremities 5 out of 5 bilaterally. Pulses:Carotid and radial pulses normal +2. Rest of the physical exam is non contributory - Head Head exam: Present: atraumatic, normocephalic - Eye Eye exam: Present: PERRL, conjuntiva pink, sclera anicteric Pupils: Present: PERRL - Neck Neck exam general surgery: Present: supple, trachea midline. Absent: lymphadenopathy - Respiratory Respiratory exam: Present: CTAB. Absent: accessory muscle use, rales, rhonchi, wheezes - Cardiovascular Cardiovascular exam: Present: RRR, +S1, +S2. Absent: diastolic murmur, gallop, rubs, systolic murmur - GI/Abdominal GI/Abdominal exam: Present: normal bowel sounds, soft, no peritoneal signs. Absent: distended, tenderness - Extremities Exam Extremities exam: Present: warm, radial pulses palpable and symmetrical. Absent: calf tenderness, cyanotic, pedal edema - Back Exam Back exam: Present: tenderness - Neurological Exam Neurological exam: Present: CN II-XII intact, oriented X3, no focal deficits. Absent: pronater drift, facial droop, speech deficit - Skin Skin exam: Present: dry, intact - Patient Status Disposition: Home, Self-Care Condition: Good Functional capacity at discharge: independent ambulation Overall status at discharge: patient is back to baseline - Ambulatory Orders Ambulatory Orders: Renal Function Panel [CHEM] Time Frame: 08/02/18, Facility: [facility], Location: Lab Urinalysis Reflex Cult & Micro [URIN] Time Frame: 08/02/18, Facility: [facility], Location: Lab Creatinine,Urine [UCHEM] Time Frame: 08/02/18, Facility: [facility], Location: Lab Potassium,Urine [UCHEM] Time Frame: 07/02/18, Facility: [facility], Location: Lab Urine Microalbumin Random [UCHEM] Time Frame: 08/02/18, Facility: [facility], Location: Lab Urine Protein Creat Ratio [place] [UCHEM] Time Frame: 08/02/18, Facility: [facility], Location: Lab - Discharge Instructions Instructions: Lisinopril (By mouth), Aspirin (By mouth), Tramadol (By mouth), Atorvastatin (By mouth), Degenerative Disc Disease (DC) Follow Up With: Lenin Long MD [Partnered Physician] - (Appointment has been requested. Office will call with appointment date and time.) Susy Thomas ARIELA [Primary Care Provider] - 06/23/18 1:00 pm - Diet and Activity Activity: increase activity as tolerated Diet: low fat, low cholesterol
[2018-06-22] MEDS ORDERED: Aspirin 81 MG TAB.CHEW PO SCH (09:00)
--- NOTE | 2018-06-23 12:53 | Electrocardiograph Report ---
[place] [id number] Test Date: 2018-06-19 Pat Name: Randall Quevedo Department: EXAM2 Room: 3B44 Gender: M Neighborhood Worker: : 1975 Requested By: Elpidio Damon Order Number: [id number] Reading MD: Zenaida Winn Measurements Intervals [place] Rate: 84 P: 73 WV: 207 QRS: 96 QRSD: 99 T: -6 QT: 371 QTc: 439 Interpretive Statements Sinus rhythm Borderline prolonged [place] interval Borderline right axis deviation Low voltage, precordial leads Borderline repolarization abnormality Electronically Signed On 06-23-2018 12:51:49 EST by Zenaida Winn
--- NOTE | 2018-06-23 12:54 | Electrocardiograph Report ---
[place] [address] Test Date: 2018-06-19 Pat Name: Randall Quevedo Department: EXAM2 Room: 3B44 Gender: M Sales Professional: : 1975 Requested By: Brian Vázquez Order Number: [id number] Reading MD: Zenaida Winn Measurements Intervals [place] Rate: 79 P: 35 AR: 199 QRS: 93 QRSD: 94 T: -10 QT: 389 QTc: 446 Interpretive Statements Sinus rhythm Borderline right axis deviation Borderline repolarization abnormality Electronically Signed On 06-23-2018 12:53:28 EST by Zenaida Winn
== END 2018-06-21 19:10 | disposition home or self-care (01) ==
LOC: EMEROOARM 16:03 → 3BNU 16:03
PROVIDERS: ADMIT Internal Medicine; ATTEND Internal Medicine